=== PATIENT | male | born 1985 | race African-American/Black ===

== ENCOUNTER 2018-11-21 09:38 | Emergency (ER) | payer OTHER ==
[~2018-11-21] VITALS: Ht 188 cm; Wt 83.9 kg
[~2018-11-21 09:38] MED LIST: FLEXERIL PO; KETOCONAZOLE60 GM TP; NOHOMEMEDICATIONS; NORCO 5-325 TA1 EACH PO; PREDNISONE50 MG PO; VICODIN 5-5001 EACH PO
[2018-11-21 10:15] LABS: ABSOLUTE NEUTROPHILS 1.8 thou/uL (1.4-8.2); EOSINOPHILS 0.9 % (0.0-3.0); HEMATOCRIT 44.1 % (42.0-52.0); HEMOGLOBIN 14.8 gm/dL (14.0-18.0); LYMPHOCYTES 40.8 % (24.0-44.0); MCH 28.1 pg (26.0-34.0); MCHC 33.5 g/dL (28.0-37.0); MONOCYTES 11.7 % (1.0-8.0); PLATELET COUNT 169 thou/uL (150-400); POLYS 45.6 % (36.0-66.0); RBC 5.25 mil/uL (4.50-6.00); RDW 13.9 % (10.5-14.5); WBC 3.9 thou/uL (4.0-11.0)
[2018-11-21 10:29] LABS: ANION GAP 14 mmol/L (7-16); BUN 18 mg/dL (7-18); CALCIUM 9.5 mg/dL (8.5-10.1); CHLORIDE 102 mmol/L (98-107); CO2 26 mmol/L (21-32); CREATININE 0.8 mg/dL (0.7-1.3); GLUCOSE 132 mg/dL (74-106); POTASSIUM 4.1 mmol/L (3.5-5.1); SODIUM 142 mmol/L (136-145)
[2018-11-21 10:38] LABS: ALBUMIN 4.5 g/dL (3.4-5.0); SGOT 36 U/L (15-37); SGPT 55 U/L (30-65); TOTAL BILIRUBIN 0.4 mg/dL (<0.1-1.0); TOTAL PROTEIN 7.4 g/dL (6.4-8.2); TROPONIN-I <0.06 ng/mL (<0.06)
[2018-11-21 11:21] LABS: AMP/METHAMP Negative (Negative); BARBITURATES Negative (Negative); BENZODIAZEPINES Negative (Negative); COCAINE Negative (Negative); METHADONE Negative (Negative); OPIATES Negative (Negative); PCP POSITIVE (Negative)
[2018-11-21] MEDS ORDERED: MOBIC7.5 MG PO (11:50)
[2018-11-21 12:22] VITALS: BP 124/71
--- NOTE | 2018-11-21 12:54 | EKG ---
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: [facility] : 1985 Requested By: [place] Reyna Order Number: [id number] MD: Reynaldo Jack Measurements Intervals [place] Rate: 98 P: 79 [place]: 141 QRS: 60 QRSD: 91 T: 23 QT: 333 QTc: 426 Interpretive Statements Sinus rhythm Normal tracing No previous ECG available for comparison Electronically Signed On 11-21-2018 12:54:07 INFORMATICS NURSE SPECIALIST by Reynaldo Jack [email or web address] ��������������������������������������������� <ELECTRONICALLY SIGNED> ���������������������������������������� By: Reynaldo Jack MD, [facility] ��������������������������������������������� 11/21/18 1254 0943 0943 Reynaldo Jack MD, FACC /EPI
== END 2018-11-21 12:23 | disposition home or self-care (01) ==
LOC: ER 09:38
PROVIDERS: Physician Assistant
DX: R07.89 Other chest pain (principal); I10 Essential (primary) hypertension

== ENCOUNTER 2018-12-15 02:26 | Emergency (ER) | payer OTHER ==
[~2018-12-15] VITALS: Ht 188 cm; Wt 90.7 kg
[~2018-12-15 02:26] MED LIST changes: +MOBIC7.5 MG PO
[2018-12-15 05:07] VITALS: BP 124/63
== END 2018-12-15 05:09 | disposition home or self-care (01) ==
LOC: ER 02:26
DX: S01.01XA Laceration without foreign body of scalp, initial encounter (principal); Y04.0XXA Assault by unarmed brawl or fight, initial encounter; Y93.89 Activity, other specified; Y92.89 Other specified places as the place of occurrence of the external cause; Y99.8 Other external cause status

== ENCOUNTER 2018-12-28 22:33 | Emergency (ER) | payer OTHER ==
[~2018-12-28] VITALS: Ht 188 cm; Wt 81.7 kg
[2018-12-28 22:35] VITALS: BP 155/104
== END 2018-12-28 23:07 | disposition home or self-care (01) ==
LOC: ER 22:33
DX: S01.01XD Laceration without foreign body of scalp, subsequent encounter (principal); G89.29 Other chronic pain; X58.XXXD Exposure to other specified factors, subsequent encounter

== ENCOUNTER 2019-01-22 23:19 | Emergency (ER) | payer OTHER ==
[~2019-01-22] VITALS: Ht 188 cm; Wt 81.7 kg
[2019-01-23 00:41] VITALS: BP 106/59
== END 2019-01-23 00:42 | disposition home or self-care (01) ==
LOC: ER 23:19
DX: S61.411A Laceration without foreign body of right hand, initial encounter (principal); M54.9 Dorsalgia, unspecified; G89.29 Other chronic pain; W26.0XXA Contact with knife, initial encounter; Y93.89 Activity, other specified; Y92.89 Other specified places as the place of occurrence of the external cause; Y99.8 Other external cause status

== ENCOUNTER 2019-04-04 00:31 | Emergency (ER) | payer OTHER ==
[~2019-04-04] VITALS: Ht 188 cm; Wt 86.2 kg
[2019-04-04] MEDS ORDERED: KEFLEX500 M1 PO (05:13)
[2019-04-04 06:17] VITALS: BP 137/82
== END 2019-04-04 06:17 | disposition home or self-care (01) ==
LOC: ER 00:31
DX: S01.511A Laceration without foreign body of lip, initial encounter (principal); S01.21XA Laceration without foreign body of nose, initial encounter; M54.9 Dorsalgia, unspecified; G89.29 Other chronic pain; Y04.0XXA Assault by unarmed brawl or fight, initial encounter; Y93.89 Activity, other specified; Y92.89 Other specified places as the place of occurrence of the external cause; Y99.8 Other external cause status

== ENCOUNTER 2019-04-04 17:10 | Emergency (ER) | payer OTHER ==
[~2019-04-04 17:10] MED LIST changes: +KEFLEX500 M1 PO
[2019-04-04 17:11] VITALS: BP 156/93
== END 2019-04-04 17:55 | disposition home or self-care (01) ==
LOC: ER 17:10
DX: Z53.21 Procedure and treatment not carried out due to patient leaving prior to being seen by health care provider (principal)

== ENCOUNTER 2019-04-04 20:51 | Emergency (ER) | payer OTHER ==
[~2019-04-04] VITALS: Ht 188 cm; Wt 81.7 kg
[2019-04-04 20:55] VITALS: BP 133/87
== END 2019-04-04 21:49 | disposition home or self-care (01) ==
LOC: ER 20:51
DX: Z48.01 Encounter for change or removal of surgical wound dressing (principal); G89.29 Other chronic pain; M54.9 Dorsalgia, unspecified

== ENCOUNTER 2019-07-28 18:25 | Emergency (ER) | payer OTHER ==
[~2019-07-28] VITALS: Ht 188 cm; Wt 79.4 kg
[2019-07-28] MEDS ORDERED: AUGMENTIN 875-1 EACH PO (20:36)
[2019-07-28 21:00] VITALS: BP 132/87
== END 2019-07-28 21:03 | disposition home or self-care (01) ==
LOC: ER 18:25
DX: S61.411A Laceration without foreign body of right hand, initial encounter (principal); S69.91XA Unspecified injury of right wrist, hand and finger(s), initial encounter; G89.29 Other chronic pain; M54.9 Dorsalgia, unspecified; F10.129 Alcohol abuse with intoxication, unspecified; W18.39XA Other fall on same level, initial encounter; Y92.89 Other specified places as the place of occurrence of the external cause; Y93.89 Activity, other specified; Y99.8 Other external cause status

== ENCOUNTER 2019-11-22 14:40 | Emergency (ER) | payer OTHER ==
[~2019-11-22] VITALS: Ht 188 cm; Wt 82.1 kg
[~2019-11-22 14:40] MED LIST changes: +AUGMENTIN 875-1 EACH PO
[2019-11-22 17:05] VITALS: BP 131/95
== END 2019-11-22 17:05 | disposition home or self-care (01) ==
LOC: ER 14:40
DX: F10.129 Alcohol abuse with intoxication, unspecified (principal); F17.290 Nicotine dependence, other tobacco product, uncomplicated; Z79.899 Other long term (current) drug therapy

== ENCOUNTER 2019-11-22 21:53 | Emergency (ER) | payer OTHER ==
[~2019-11-22] VITALS: Ht 188 cm; Wt 83.9 kg
[2019-11-22 21:55] VITALS: BP 165/84
[2019-11-22 22:48] LABS: HEMATOCRIT 47.7 % (42.0-52.0); HEMOGLOBIN 15.7 gm/dL (14.0-18.0); MCH 28.3 pg (26.0-34.0); MCHC 32.9 g/dL (28.0-37.0); MCV 86.2 fL (80.0-100.0); RBC 5.54 mil/uL (4.50-6.00); RDW 13.3 % (10.5-14.5); WBC 10.4 thou/uL (4.0-11.0)
[2019-11-22 22:52] LABS: URINE BILIRUBIN NEGATIVE (Negative); URINE BLOOD NEGATIVE (Negative); URINE CLARITY CLEAR; URINE COLOR YELLOW; URINE GLUCOSE-RANDOM* NEGATIVE (Negative); URINE KETONES NEGATIVE (Negative); URINE LEUKOCYTES-REFLEX NEGATIVE (Negative); URINE NITRITE-REFLEX NEGATIVE (Negative); URINE PROTEIN (DIPSTICK) NEGATIVE (Negative); URINE UROBILINOGEN 0.2 E.U./dl (0.2-1.0)
[2019-11-22 22:54] LABS: ANION GAP 12 mmol/L (7-16); BUN 15 mg/dL (7-18); CALCIUM 9.3 mg/dL (8.5-10.1); CHLORIDE 102 mmol/L (98-107); CO2 28 mmol/L (21-32); CREATININE 0.8 mg/dL (0.7-1.3); GLUCOSE 75 mg/dL (74-106); POTASSIUM 3.5 mmol/L (3.5-5.1); SALICYLATE < 2.8 mg/dL (2.8-20.0); SODIUM 142 mmol/L (136-145)
[2019-11-22 22:59] LABS: AMP/METHAMP Negative (Negative); BARBITURATES Negative (Negative); BENZODIAZEPINES Negative (Negative); COCAINE Negative (Negative); METHADONE Negative (Negative); OPIATES Negative (Negative); PCP Negative (Negative)
[2019-11-26 18:06] LABS: TRICYCLIC (TCA) CONFIRMATION Positive ng/mL (Cutoff=100)
== END 2019-11-23 06:43 | disposition home or self-care (01) ==
LOC: ER 21:53
PROVIDERS: Emergency Medicine
DX: R45.851 Suicidal ideations (principal); F10.129 Alcohol abuse with intoxication, unspecified; G89.29 Other chronic pain; M54.9 Dorsalgia, unspecified; Z79.899 Other long term (current) drug therapy

== ENCOUNTER 2020-01-09 20:19 | Emergency (ER) | payer OTHER ==
[2020-01-09 20:31] VITALS: BP 00/00
== END 2020-01-09 20:37 | disposition home or self-care (01) ==
LOC: ER 20:19
DX: H92.22 Otorrhagia, left ear (principal); F10.10 Alcohol abuse, uncomplicated; R47.81 Slurred speech; Y90.9 Presence of alcohol in blood, level not specified

== ENCOUNTER 2020-01-18 15:53 | Emergency (ER) | payer OTHER ==
[~2020-01-18] VITALS: Ht 188 cm; Wt 81.7 kg
[2020-01-18 15:56] VITALS: BP 118/71
== END 2020-01-18 16:57 | disposition home or self-care (01) ==
LOC: ER 15:53
DX: R51 Headache (principal); F19.10 Other psychoactive substance abuse, uncomplicated; G89.29 Other chronic pain; M54.2 Cervicalgia; M54.5 Low back pain; F12.90 Cannabis use, unspecified, uncomplicated

== ENCOUNTER 2020-05-16 14:38 | Emergency (ER) | payer OTHER ==
[~2020-05-16] VITALS: Ht 185.4 cm; Wt 83.9 kg
[2020-05-16 17:21] VITALS: BP 146/106
== END 2020-05-16 17:21 | disposition left against medical advice (07) ==
LOC: ER 14:38
DX: S02.831A Fracture of medial orbital wall, right side, initial encounter for closed fracture (principal); G89.29 Other chronic pain; W22.8XXA Striking against or struck by other objects, initial encounter; Y93.89 Activity, other specified; Y92.89 Other specified places as the place of occurrence of the external cause; Y99.9 Unspecified external cause status

== ENCOUNTER → 2020-07-21 | Emergency (ER) | payer OTHER | LOC: ER 16:02 | DX: M79.646 Pain in unspecified finger(s) (principal); Z53.21 Procedure and treatment not carried out due to patient leaving prior to being seen by health care provider ==

== ENCOUNTER 2020-07-22 12:17 | Inpatient (IN) | payer OTHER ==
[~2020-07-22] VITALS: Ht 190.5 cm; Wt 85.7 kg
[2020-07-22 12:18] VITALS: BP 136/86
[2020-07-22 13:50] LABS: ABSOLUTE NEUTROPHILS 2.1 thou/uL (1.4-8.2); BASOPHILS 2.4 % (0.0-2.0); EOSINOPHILS 0.8 % (0.0-3.0); HEMATOCRIT 43.1 % (42.0-52.0); HEMOGLOBIN 14.6 gm/dL (14.0-18.0); LYMPHOCYTES 30.9 % (24.0-44.0); MCHC 33.8 g/dL (28.0-37.0); MCV 88.7 fL (80.0-100.0); MONOCYTES 9.4 % (1.0-8.0); POLYS 56.5 % (36.0-66.0); RBC 4.86 mil/uL (4.50-6.00); RDW 13.9 % (10.5-14.5); WBC 3.7 thou/uL (4.0-11.0)
[2020-07-22 13:58] LABS: CALCIUM 8.4 mg/dL (8.5-10.1); CREATININE 0.8 mg/dL (0.7-1.3); POTASSIUM 3.6 mmol/L (3.5-5.1)
[2020-07-22 14:47] LABS: PLATELET COUNT 89 thou/uL (150-400)
[2020-07-22 15:20] LABS: APTT 26.6 Seconds (24.5-32.8); PROTIME 9.5 Seconds (9.3-11.4)
[2020-07-22 15:24] VITALS: BP 140/91
[2020-07-22 15:58] VITALS: BP 140/88
[2020-07-22 16:00] VITALS: BP 146/94
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
== END 2020-07-22 17:06 | disposition left against medical advice (07) | DRG 603 ==
LOC: ER 12:17 → EROBS 14:34 → 2N 16:07
PROVIDERS: Emergency Medicine; ADMIT Internal Medicine; ATTEND Internal Medicine
DX: L03.011 Cellulitis of right finger (principal); G89.29 Other chronic pain; M54.9 Dorsalgia, unspecified; F10.10 Alcohol abuse, uncomplicated; Y90.9 Presence of alcohol in blood, level not specified; F19.10 Other psychoactive substance abuse, uncomplicated; F17.200 Nicotine dependence, unspecified, uncomplicated; M65.841 Other synovitis and tenosynovitis, right hand; Z20.828 Contact with and (suspected) exposure to other viral communicable diseases
CPT/HCPCS: 10194

== ENCOUNTER 2020-09-07 23:02 | Emergency (ER) | payer OTHER ==
[~2020-09-07] VITALS: Ht 188 cm; Wt 84.4 kg
[2020-09-08 02:14] VITALS: BP 132/80
== END 2020-09-08 02:00 | disposition home or self-care (01) ==
LOC: ER 23:02
DX: S01.81XA Laceration without foreign body of other part of head, initial encounter (principal); W25.XXXA Contact with sharp glass, initial encounter; Y93.89 Activity, other specified; Y92.89 Other specified places as the place of occurrence of the external cause; Y99.8 Other external cause status

== ENCOUNTER 2020-10-02 19:55 | Emergency (ER) | payer OTHER ==
[~2020-10-02] VITALS: Ht 188 cm; Wt 83.9 kg
[2020-10-02 19:56] VITALS: BP 174/107
== END 2020-10-02 21:59 | disposition home or self-care (01) ==
LOC: ER 19:55
DX: S01.01XA Laceration without foreign body of scalp, initial encounter (principal); G89.29 Other chronic pain; M54.9 Dorsalgia, unspecified; W50.1XXA Accidental kick by another person, initial encounter; Y93.89 Activity, other specified; Y92.89 Other specified places as the place of occurrence of the external cause; Y99.8 Other external cause status

== ENCOUNTER 2020-10-11 12:19 | Emergency (ER) | payer OTHER ==
[~2020-10-11] VITALS: Ht 190.5 cm; Wt 83.9 kg
[2020-10-11 13:12] VITALS: BP 130/87
== END 2020-10-11 13:13 | disposition home or self-care (01) ==
LOC: ER 12:19
DX: S01.01XD Laceration without foreign body of scalp, subsequent encounter (principal); G89.29 Other chronic pain; X58.XXXD Exposure to other specified factors, subsequent encounter

== ENCOUNTER 2020-10-19 14:54 | Emergency (ER) | payer OTHER ==
[~2020-10-19] VITALS: Ht 190.5 cm; Wt 83.9 kg
[2020-10-19 14:57] VITALS: BP 159/99
[2020-10-19 16:04] LABS: ABSOLUTE NEUTROPHILS 2.1 thou/uL (1.4-8.2); BASOPHILS 2.9 % (0.0-2.0); HEMATOCRIT 42.4 % (42.0-52.0); HEMOGLOBIN 14.3 gm/dL (14.0-18.0); LYMPHOCYTES 29.8 % (24.0-44.0); MCH 30.5 pg (26.0-34.0); MCHC 33.6 g/dL (28.0-37.0); MCV 90.7 fL (80.0-100.0); MONOCYTES 11.3 % (1.0-8.0); PLATELET COUNT 132 thou/uL (150-400); RBC 4.68 mil/uL (4.50-6.00); RDW 13.2 % (10.5-14.5); WBC 3.8 thou/uL (4.0-11.0)
== END 2020-10-19 17:03 | disposition home or self-care (01) ==
LOC: ER 14:54
PROVIDERS: Nurse Practitioner
DX: R23.8 Other skin changes (principal)

== ENCOUNTER 2020-10-21 19:17 | Emergency (ER) | payer OTHER ==
[~2020-10-21] VITALS: Ht 190.5 cm; Wt 83.9 kg
[2020-10-21] MEDS ORDERED: KEFLEX500 M1 PO (20:17)
[2020-10-21 20:34] VITALS: BP 142/96
== END 2020-10-21 20:35 | disposition home or self-care (01) ==
LOC: ER 19:17
DX: S60.426A Blister (nonthermal) of right little finger, initial encounter (principal); F12.90 Cannabis use, unspecified, uncomplicated; G89.29 Other chronic pain; X58.XXXA Exposure to other specified factors, initial encounter; Y93.89 Activity, other specified; Y92.89 Other specified places as the place of occurrence of the external cause; Y99.9 Unspecified external cause status

== ENCOUNTER 2020-11-20 15:52 | Emergency (ER) | payer OTHER ==
[~2020-11-20] VITALS: Ht 190.5 cm; Wt 83.9 kg
[2020-11-20] MEDS ORDERED: NEURONTIN 300M300 M2 PO (16:19)
== END 2020-11-20 16:59 | disposition home or self-care (01) ==
LOC: ER 15:52
DX: G62.9 Polyneuropathy, unspecified (principal); G89.29 Other chronic pain; M54.9 Dorsalgia, unspecified; F17.210 Nicotine dependence, cigarettes, uncomplicated; Z79.899 Other long term (current) drug therapy

== ENCOUNTER 2020-12-28 05:48 | Emergency (ER) | payer OTHER ==
[~2020-12-28] VITALS: Ht 157.5 cm; Wt 85.5 kg
[~2020-12-28 05:48] MED LIST changes: +NEURONTIN 300M300 M2 PO
--- NOTE | 2020-12-28 07:13 | EKG ---
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: hany contreras : 1985 Requested By: Gianni Neely Order Number: [id number] MD: Michael Pablo Measurements Intervals [place] Rate: 101 P: 40 [place]: 148 QRS: 23 QRSD: 95 T: 0 QT: 362 QTc: 470 Interpretive Statements Sinus tachycardia Probable left atrial enlargement Borderline prolonged QT interval Compared to ECG 11/21/2018 09:43:18 Sinus rhythm no longer present Electronically Signed On 12-28-2020 7:13:27 CDT by Michael Pablo [email or web address] <ELECTRONICALLY SIGNED> By: Michael Pablo MD, [facility] 12/28/20 0713 0652 1 Michael Pablo MD, FACC /EPI
[2020-12-28 07:14] LABS: ABSOLUTE NEUTROPHILS 3.4 thou/uL (1.4-8.2); BASOPHILS 1.2 % (0.0-2.0); EOSINOPHILS 0.4 % (0.0-3.0); HEMATOCRIT 38.5 % (42.0-52.0); LYMPHOCYTES 17.7 % (24.0-44.0); MCHC 33.7 g/dL (28.0-37.0); MONOCYTES 12.9 % (1.0-8.0); PLATELET COUNT 159 thou/uL (150-400); POLYS 67.8 % (36.0-66.0); RBC 4.32 mil/uL (4.50-6.00); WBC 5.1 thou/uL (4.0-11.0)
[2020-12-28 07:23] LABS: CALCIUM 8.9 mg/dL (8.5-10.1); CREATININE 0.9 mg/dL (0.7-1.3); POTASSIUM 3.3 mmol/L (3.5-5.1)
[2020-12-28 07:29] LABS: ALBUMIN 3.9 g/dL (3.4-5.0); TOTAL BILIRUBIN 1.2 mg/dL (0.2-1.0); TOTAL PROTEIN 7.1 g/dL (6.4-8.2)
[2020-12-28 09:34] LABS: URINE BILIRUBIN NEGATIVE (Negative); URINE BLOOD NEGATIVE (Negative); URINE CLARITY CLEAR; URINE COLOR YELLOW; URINE GLUCOSE-RANDOM* NEGATIVE (Negative); URINE KETONES 2+ (Negative); URINE LEUKOCYTES-REFLEX NEGATIVE (Negative); URINE NITRITE-REFLEX NEGATIVE (Negative); URINE PROTEIN (DIPSTICK) 2+ (Negative); URINE SPECIFIC GRAVITY >= 1.030 (1.005-1.035)
[2020-12-28 09:50] LABS: BACTERIA-REFLEX 1-9 Few /HPF (None Seen); HYALINE CASTS 0-3 Few /LPF (None Seen); SQUAMOUS None Seen /LPF (0-3); URINE RBC 0-2 Rare /HPF (0-2); URINE WBC-REFLEX 0-5 Rare /HPF (0-5)
[2020-12-28 09:51] LABS: CRYSTALS None Seen /LPF (None Seen)
[2020-12-28] MEDS ORDERED: AUGMENTIN 875-1 EACH PO (09:58)
[2020-12-28 10:08] VITALS: BP 151/99
[2020-12-29] MEDS ORDERED: CHLORDIAZEPOXID25 M1 PO (13:52)
== END 2020-12-28 10:09 | disposition home or self-care (01) ==
LOC: ER 05:48
PROVIDERS: Emergency Medicine
DX: S01.81XA Laceration without foreign body of other part of head, initial encounter (principal); S11.91XA Laceration without foreign body of unspecified part of neck, initial encounter; F17.210 Nicotine dependence, cigarettes, uncomplicated; W18.30XA Fall on same level, unspecified, initial encounter; W54.0XXA Bitten by dog, initial encounter; Y93.89 Activity, other specified; Y92.89 Other specified places as the place of occurrence of the external cause; Y99.8 Other external cause status

== ENCOUNTER 2020-12-29 13:22 | Emergency (ER) | payer OTHER ==
[~2020-12-29] VITALS: Ht 188 cm; Wt 83.9 kg
[2020-12-29] MEDS ORDERED: CHLORDIAZEPOXID25 M1 PO (13:52)
[2020-12-29 15:13] VITALS: BP 155/86
== END 2020-12-29 15:13 | disposition home or self-care (01) ==
LOC: ER 13:22
DX: S01.81XD Laceration without foreign body of other part of head, subsequent encounter (principal); F17.210 Nicotine dependence, cigarettes, uncomplicated; Z79.899 Other long term (current) drug therapy; W54.0XXD Bitten by dog, subsequent encounter

== ENCOUNTER 2020-12-31 09:14 | Emergency (ER) | payer OTHER ==
[~2020-12-31] VITALS: Ht 188 cm; Wt 83.9 kg
[2020-12-31 09:14] VITALS: BP 130/87
[~2020-12-31 09:14] MED LIST changes: +CHLORDIAZEPOXID25 M1 PO
== END 2020-12-31 10:07 | disposition left against medical advice (07) ==
LOC: ER 09:14
DX: S91.352A Open bite, left foot, initial encounter (principal); S41.152A Open bite of left upper arm, initial encounter; F17.210 Nicotine dependence, cigarettes, uncomplicated; Z79.899 Other long term (current) drug therapy; W54.0XXA Bitten by dog, initial encounter; Y93.89 Activity, other specified; Y92.89 Other specified places as the place of occurrence of the external cause; Y99.8 Other external cause status

== ENCOUNTER 2021-01-01 23:44 | Inpatient (IN) | payer MEDICAID ==
[~2021-01-01] VITALS: Ht 188 cm; Wt 83.9 kg
--- NOTE | ~2021-01-01 | HC ---
[facility] [place] [address] CONSULTATION Name: ANUJ ROBISON Tracie Room #: 358-P ADM IN M.R.#: [id number] Admission: 01/02/21 Attend Phys: Sergey Mckeon MD Discharge: Date of : 87 Report #: [id number] THIS REPORT FOR: cc: NO FAMILY PHYSICIAN or PCP NO FAMILY PHYSICIAN or PCP Moncho Irwin MD ~ DATE OF SERVICE: 01/02/2021 CHIEF COMPLAINT: Dog bites to the left arm and leg and neck. HISTORY OF PRESENT ILLNESS: This is a 35-year-old male patient with a history of polysubstance abuse, who has had multiple emergency visits for dog bites. He is complaining of some swelling and drainage from his chin and some difficulty swallowing, which prompted him being admitted. He had previously been treated with oral Augmentin. He has had multiple revisits to the ER. He cannot specifically recall the details of the dog bite. It was not his dog, although apparently, the dog that bit him has not been quarantined and apparently, rabies immunoprophylaxis has been initiated. PAST MEDICAL HISTORY: Significant for severe alcohol abuse, he drinks approximately a half gallon of vodka daily. He also smokes marijuana and cigarettes. Past medical history is also positive for chronic back pain, herniated disks and peripheral neuropathy. SOCIAL HISTORY: Positive for smoking cigarettes one-half pack per day, smokes marijuana and drinks one-half gallon of vodka daily. FAMILY HISTORY: Noncontributory. REVIEW OF SYSTEMS: CONSTITUTIONAL: The patient denies fever, chills or weight loss. NEUROLOGICAL: The patient denies focal weakness. Does complain of some numbness to his feet. ENT: The patient denies earache, nasal drainage or sore throat, but does complain of some foul smelling drainage from the bite wound on his left neck. PULMONARY: The patient denies cough or shortness of breath. GASTROINTESTINAL: The patient denies nausea, vomiting, diarrhea or abdominal pain. No fatigue. ORTHOPEDIC: The patient does have some dog bites to his left arm and left leg. Denies other pain. PHYSICAL EXAMINATION: VITAL SIGNS: At this time include temperature 36.8, pulse 94, respiratory rate 16, blood pressure 132/67. GENERAL: This is a well-developed male patient who appears to be somnolent, but [facility] [address] [place] [address] CONSULTATION Name: ROBISON,ANUJ Hodges Room #: 358-P [facility] IN M.R.#: [id number] Admission: 01/02/21 Attend Phys: Sergey Mckeon MD Discharge: Date of : 87 Report #: [id number] in no distress. HEENT: Head is normocephalic. Nose and throat are clear. NECK: Demonstrates what appears to be some traumatic wound to the anterior neck and submandibular region. It is mildly tender, but there is no fluctuance and there is no odor and no obvious drainage. LUNGS: Clear. HEART: Regular rhythm. ABDOMEN: Slightly distended, soft, nontender. EXTREMITIES: Demonstrate multiple wounds to the upper arm and forearm on the left side as well as to the left lower leg. These may in fact be dog bites, although the one on the upper arm has some resemblance in terms of its morphology to what would be considered a human bite, although he denies this. NEUROLOGIC: The patient is alert, level of orientation is a little bit difficult to assess. He moves symmetrically. LABORATORY STUDIES: Sodium 144, potassium 3.0, chloride 105, CO2 of 28, BUN 13, creatinine 0.7, glucose 143. White blood cell count of 6.3 with hemoglobin 11.4, hematocrit of 33.0. Serum alcohol on admission was 277. CLINICAL IMPRESSION: 1. Multiple traumatic wounds to the left anterior neck, left upper arm, left forearm and left leg, possibly secondary to dog bite per his history. 2. Tobacco abuse. 3. Severe alcohol abuse. 4. Other substance abuse/marijuana use. RECOMMENDATIONS: At this point in time, the patient has been seen by Infectious Disease. We will recommend antibiotics per their recommendations. We will recommend topical gentamicin ointment, Xeroform, 4 x 4's, Kerlix to be applied to the wounds daily other than the neck, which I think could be left open to air at this point in time. Substance abuse counseling has been offered and declined, the patient. I appreciate being asked to see him in consultation. By: 1157 1250 Moncho Irwin MD /nt
[2021-01-01 23:57] VITALS: BP 138/91
[2021-01-02] VITALS (7 sets, daily range): BP systolic 120–156; BP diastolic 67–107
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
[2021-01-02 01:29] LABS: ABSOLUTE NEUTROPHILS 3.4 thou/uL (1.4-8.2); BASOPHILS 0.3 % (0.0-2.0); EOSINOPHILS 0.8 % (0.0-3.0); HEMOGLOBIN 11.4 gm/dL (14.0-18.0); LYMPHOCYTES 32.7 % (24.0-44.0); MCH 30.5 pg (26.0-34.0); MCHC 34.5 g/dL (28.0-37.0); MCV 88.4 fL (80.0-100.0); MONOCYTES 12.2 % (1.0-8.0); PLATELET COUNT 190 thou/uL (150-400); RBC 3.73 mil/uL (4.50-6.00); RDW 12.5 % (10.5-14.5); WBC 6.3 thou/uL (4.0-11.0)
[2021-01-02 01:59] LABS: CALCIUM 8.5 mg/dL (8.5-10.1); CREATININE 0.7 mg/dL (0.7-1.3)
[2021-01-02 02:05] LABS: ALBUMIN 3.6 g/dL (3.4-5.0); TOTAL BILIRUBIN 0.3 mg/dL (0.2-1.0); TOTAL PROTEIN 7.1 g/dL (6.4-8.2)
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
[2021-01-02 09:50] LABS: MAGNESIUM 1.7 mg/dL (1.8-2.4); PHOSPHORUS 3.1 mg/dL (2.5-4.9)
[2021-01-02 10:18] LABS: FOLIC ACID 7.9 ng/mL (8.6-58.9)
--- NOTE | 2021-01-02 12:46 | NUR ---
PT TRANSFERRED FROM 4W TO 3W, ROOM 358, PT ALERT AND ORIENTED X4, DENIES ANY NAUSEA AND VOMITTING. CIWA ASSESSMENT COMPLETED EVERY 4 HOURS. PT UP AD JOEL TO BATHROOM. ASSESSMENT AND ADMISION COMPLETED. PT GIRLFRIEND IN ROOM VISITING. WILL CONTINUE TO MONITOR
[2021-01-02 23:06] LABS: HAV IgM AB (ANTI-HAV IgM) Negative (Negative); HEPATITIS B SURFACE AG Negative (Negative); HEPATITIS C VIRUS AB <0.1 (0.0-0.9); HIV ANTIBODY Non Reactive (Non Reactive)
[2021-01-03 04:30] VITALS: BP 149/103
[2021-01-03 07:28] VITALS: BP 148/92
--- NOTE | 2021-01-03 10:45 | NUR ---
CARE TAKEN OVER THIS AM, PT ALERT AND ORIENTED X4. PT DENIES ANY PAIN, NAUSEA AND VOMITTING. PT UP AD JOEL. GIRLFIREND IN ROOM VISITING. WOUND CARE DRESSING COMPLETED. WILL CONTINUE TO MONITOR
[2021-01-03 11:37] VITALS: BP 154/92
--- NOTE | 2021-01-03 11:56 | HC ---
[facility] [place] [address] CONSULTATION Name: ANUJ ROBISON Room #: 358-P ADM IN M.R.#: [id number] Admission: 01/02/21 Attend Phys: Sergey Mckeon MD Discharge: Date of : 87 Report #: [id number] THIS REPORT FOR: cc: NO FAMILY PHYSICIAN or PCP NO FAMILY PHYSICIAN or PCP Konstantin Downey MD ~ DATE OF SERVICE: 01/02/2021 INFECTIOUS DISEASE CONSULTATION ATTENDING PHYSICIAN: Dr. Mckeon. REASON FOR EVALUATION: Dog bite multiple sites, complicated by skin and soft tissue infection. HISTORY OF PRESENT ILLNESS: Chart reviewed, patient examined. This is a 35-year-old gentleman with history of chronic back pain. Does have history of seizures, felt to be alcohol withdrawal related who sustained injury as a result of a dog bite. He was seen on 12/31/2020, given treatment with Augmentin, which apparently he did not take. He noted he previously had a dog bite to his neck as well. Review of the recent ER visits, there have been many of involved injuries, sustained one scalp laceration. It is notable that alcohol level was elevated at 277. CT of the soft tissue of the neck showed no evident abscess. There was some stranding suggestive of inflammation, empirically dosed with Unasyn as well as vancomycin. He is generally lucid. ALLERGIES: None known. MEDICINES: Currently include vitamin, famotidine, vancomycin, ondansetron, flumazenil, folic acid, thiamine, multivitamin. PAST MEDICAL HISTORY: Chronic back pain. SOCIAL HISTORY: Ethanol abuse or illicit drug use. FAMILY HISTORY: Noncontributory. REVIEW OF SYSTEMS: As above. PHYSICAL EXAMINATION: GENERAL: He is alert, cooperative, moderate distress. He is generally lucid, reasonably well nourished. VITAL SIGNS: Temperature 99.4, pulse 94, respirations 14, blood pressure 136/89. SKIN: Warm, dry, no rashes. [facility] [address] [place] [address] CONSULTATION Name: ANUJ ROBISON Room #: 358-P [facility].#: [id number] Admission: 01/02/21 Attend Phys: Sergey Mckeon MD Discharge: Date of : 87 Report #: [id number] NECK: Does have some fullness in his neck. He is palpably tender. I do not appreciate any fluctuance. He notes a knot in the submandibular site. HEENT: Normocephalic. Extraocular muscles intact. Oropharynx with poor dentition. LUNGS: Diminished, otherwise clear breath sounds. HEART: Regular. Borderline tachycardia. I do not appreciate any murmur. ABDOMEN: Soft, nontender, there are no peritoneal signs. There is some superficial laceration, left upper extremity and left lower extremity with mild to moderate degree of inflammation. There is no evidence of fluctuance. There is no evidence of exposure or communication with deep seated structures. GENITOURINARY AND RECTAL: Deferred. LABORATORY DATA: Electrolytes: Sodium 144, potassium 3.0, chloride 105, bicarbonate 28, anion gap of 11, BUN and creatinine 13 and 0.7. AST of 123, ALT 86. Albumin of 3.6, total protein of 7.1. CBC: White count 6.3, H and H 11.4 and 33.0, platelets of 190. ASSESSMENT AND PLAN: Dog bite injury complicated by skin and soft tissue infection at multiple sites. We will continue the vancomycin and add Unasyn, do additional diagnostic testing. We will see how he does clinically over the course of next 24-48 hours, would be concerned about alcohol withdrawal as well. He has had a history of leaving. Continue wound care as prescribed. Discussed with Dr. Irwin. <ELECTRONICALLY SIGNED> By: Konstantin Downey MD 01/03/21 1156 1130 1303 Konstantin Downey MD /nt
--- NOTE | 2021-01-03 15:25 | NUR ---
INITIAL ASSESSMENT: SW reviewed chart and spoke with nursing and attending physician. Pt was admitted from home after several dog bites. Pt is on IV abx. Wound care and ID following. Pt was seen in the ER on 12/31 and then discharged and did not fill his new scripts. Pt does not have health insurance. [facility] met with pt and filed a Medicaid application. SW met with pt and s/o at bedside. Introduced role of SW. Pt is alert/orientated x 4. Pt states that he lives at [address] [place] [address]. Pt does not have a PCP. Pt is agreeable with receiving info for primary care clinics for follow up. SW notified that pt is homeless. SW returned to pt's room to discuss discharge disposition. Pt requests SW return at a later time. [facility] Resource Guide and prescription discount card left on pt's chart. SW is following to assist as needed with discharge planning.
[2021-01-03 15:59] VITALS: BP 147/101
[2021-01-03 19:15] VITALS: BP 142/99
[2021-01-04 04:15] VITALS: BP 131/79
--- NOTE | 2021-01-04 07:41 | NUR ---
PT MAKING PROGRESS TOWARD GOALS. WOUND REPORTEDLY IMPROVING, DRESSINGS DRY AND INTACT. DENIES ANY PAIN AT THOSE SITES.
[2021-01-04 07:55] VITALS: BP 150/95
[2021-01-04] MEDS ORDERED: GENTAMICIN SULF15 GM TOP (11:21)
[2021-01-04] MEDS ORDERED: AUGMENTIN 875-1 EACH PO (11:21)
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
--- NOTE | 2021-01-04 15:04 | NUR ---
spoke with patient and girlfriend in bed with patient. Discussed discharge to jail. Patient denies he reports he would rather be outside than a jail. Alerted plan to vouch for antibiotic at mt. Patient within an hour of converstation left AMA. Dr Mckeon wanted RN to call patient to have antibiotic. Gave script and face sheet to pharmacy in medical mall. when returned patient returned to floor. Instructed medication, antibiotic to be vouched and located in outpatient pharmacy. No further needs
[2021-01-04 20:06] LABS: SYPHILIS AB Non Reactive (Non Reactive)
== END 2021-01-04 12:16 | disposition left against medical advice (07) | DRG 603 ==
LOC: ER 23:44 → 3W 01-02 05:12 → EROBS 01-02 05:12 → 4W 01-02 05:39 → 3W 01-02 06:32
PROVIDERS: Emergency Medicine; Nurse Practitioner; Specialist; ADMIT Hospitalist; ATTEND Hospitalist
DX: L03.221 Cellulitis of neck (principal); G89.29 Other chronic pain; M54.9 Dorsalgia, unspecified; S81.852A Open bite, left lower leg, initial encounter; S01.85XA Open bite of other part of head, initial encounter; G62.9 Polyneuropathy, unspecified; F17.210 Nicotine dependence, cigarettes, uncomplicated; S11.90XA Unspecified open wound of unspecified part of neck, initial encounter; S81.802A Unspecified open wound, left lower leg, initial encounter; S51.802A Unspecified open wound of left forearm, initial encounter; F12.90 Cannabis use, unspecified, uncomplicated; F10.129 Alcohol abuse with intoxication, unspecified; F19.10 Other psychoactive substance abuse, uncomplicated; E87.6 Hypokalemia; E83.42 Hypomagnesemia; Z53.29 Procedure and treatment not carried out because of patient's decision for other reasons; W54.0XXA Bitten by dog, initial encounter; Y93.89 Activity, other specified; Y92.89 Other specified places as the place of occurrence of the external cause; Y99.8 Other external cause status
CPT/HCPCS: 10879

== ENCOUNTER 2021-03-05 22:29 | Emergency (ER) | payer OTHER ==
[~2021-03-05] VITALS: Ht 188 cm; Wt 81.7 kg
[~2021-03-05 22:29] MED LIST changes: +GENTAMICIN SULF15 GM TOP
[2021-03-06 00:12] LABS: BASOPHILS 1.3 % (0.0-2.0); EOSINOPHILS 0.2 % (0.0-3.0); HEMATOCRIT 41.7 % (42.0-52.0); HEMOGLOBIN 14.1 gm/dL (14.0-18.0); LYMPHOCYTES 33.1 % (24.0-44.0); MCH 29.4 pg (26.0-34.0); MCHC 33.9 g/dL (28.0-37.0); MCV 86.8 fL (80.0-100.0); MONOCYTES 12.2 % (1.0-8.0); PLATELET COUNT 93 thou/uL (150-400); POLYS 53.2 % (36.0-66.0); RDW 12.6 % (10.5-14.5); WBC 3.8 thou/uL (4.0-11.0)
[2021-03-06 00:17] LABS: CALCIUM 8.2 mg/dL (8.5-10.1); CREATININE 0.8 mg/dL (0.7-1.3); POTASSIUM 3.1 mmol/L (3.5-5.1)
[2021-03-06 00:23] LABS: ALBUMIN 3.8 g/dL (3.4-5.0); MAGNESIUM 1.6 mg/dL (1.8-2.4); TOTAL BILIRUBIN 0.6 mg/dL (0.2-1.0); TOTAL PROTEIN 6.9 g/dL (6.4-8.2)
[2021-03-06 03:11] VITALS: BP 122/76
== END 2021-03-06 03:11 | disposition home or self-care (01) ==
LOC: ER 22:29
PROVIDERS: Emergency Medicine
DX: G47.62 Sleep related leg cramps (principal); E87.6 Hypokalemia; E83.42 Hypomagnesemia; F10.10 Alcohol abuse, uncomplicated; F17.210 Nicotine dependence, cigarettes, uncomplicated; G89.29 Other chronic pain; M54.9 Dorsalgia, unspecified; G62.9 Polyneuropathy, unspecified

== ENCOUNTER 2021-03-27 12:33 | Emergency (ER) | payer OTHER ==
[~2021-03-27] VITALS: Ht 188 cm; Wt 83.9 kg
[2021-03-27 13:26] VITALS: BP 114/68
[2021-03-27 13:43] LABS: CALCIUM 7.9 mg/dL (8.5-10.1); CREATININE 0.8 mg/dL (0.7-1.3); POTASSIUM 3.2 mmol/L (3.5-5.1)
[2021-03-27 13:45] LABS: ABSOLUTE NEUTROPHILS 2.2 thou/uL (1.4-8.2); BASOPHILS 1.9 % (0.0-2.0); EOSINOPHILS 0.7 % (0.0-3.0); HEMATOCRIT 41.6 % (42.0-52.0); HEMOGLOBIN 14.2 gm/dL (14.0-18.0); LYMPHOCYTES 34.7 % (24.0-44.0); MCH 29.7 pg (26.0-34.0); MCV 87.3 fL (80.0-100.0); PLATELET COUNT 122 thou/uL (150-400); POLYS 55.7 % (36.0-66.0); RBC 4.77 mil/uL (4.50-6.00); RDW 13.6 % (10.5-14.5); WBC 3.9 thou/uL (4.0-11.0)
[2021-03-27 13:49] LABS: ALBUMIN 3.4 g/dL (3.4-5.0); TOTAL BILIRUBIN 0.3 mg/dL (0.2-1.0); TOTAL PROTEIN 6.6 g/dL (6.4-8.2)
== END 2021-03-27 15:40 ==
LOC: ER 12:33
PROVIDERS: Physician Assistant
DX: S02.2XXA Fracture of nasal bones, initial encounter for closed fracture (principal); S22.32XA Fracture of one rib, left side, initial encounter for closed fracture; F17.210 Nicotine dependence, cigarettes, uncomplicated; V03.09XA Pedestrian with other conveyance injured in collision with car, pick-up truck or van in nontraffic accident, initial encounter; Y93.89 Activity, other specified; Y92.89 Other specified places as the place of occurrence of the external cause; Y99.8 Other external cause status

== ENCOUNTER 2021-04-08 04:43 | Inpatient (IN) | payer OTHER ==
[~2021-04-08] VITALS: Ht 190.5 cm; Wt 81.6 kg
[2021-04-08] VITALS (11 sets, daily range): BP systolic 121–154; BP diastolic 78–101
[2021-04-08 05:15] LABS: ABSOLUTE NEUTROPHILS 6.9 thou/uL (1.4-8.2); BASOPHILS 0.6 % (0.0-2.0); EOSINOPHILS 0.1 % (0.0-3.0); HEMATOCRIT 44.3 % (42.0-52.0); HEMOGLOBIN 15.1 gm/dL (14.0-18.0); LYMPHOCYTES 6.6 % (24.0-44.0); MCH 29.7 pg (26.0-34.0); MCHC 34.1 g/dL (28.0-37.0); MCV 87.2 fL (80.0-100.0); MONOCYTES 3.3 % (1.0-8.0); PLATELET COUNT 100 thou/uL (150-400); POLYS 89.4 % (36.0-66.0); RBC 5.08 mil/uL (4.50-6.00); RDW 14.3 % (10.5-14.5); WBC 7.7 thou/uL (4.0-11.0)
[2021-04-08 05:34] LABS: ALBUMIN 3.7 g/dL (3.4-5.0); ANION GAP 15 mmol/L (7-16); BUN 11 mg/dL (7-18); CALCIUM 8.4 mg/dL (8.5-10.1); CHLORIDE 103 mmol/L (98-107); CO2 27 mmol/L (21-32); CREATININE 0.8 mg/dL (0.7-1.3); GLUCOSE 86 mg/dL (74-106); SGOT 184 U/L (15-37); SGPT 84 U/L (30-65); SODIUM 145 mmol/L (136-145); TOTAL BILIRUBIN 0.9 mg/dL (0.2-1.0); TOTAL PROTEIN 7.1 g/dL (6.4-8.2); TROPONIN-I <0.06 ng/mL (<0.06)
[2021-04-08 05:35] LABS: POTASSIUM 2.8 mmol/L (3.5-5.1)
[2021-04-08 10:28] LABS: CALCIUM 7.4 mg/dL (8.5-10.1); CREATININE 0.7 mg/dL (0.7-1.3); PHOSPHORUS 2.6 mg/dL (2.5-4.9); POTASSIUM 3.1 mmol/L (3.5-5.1)
[2021-04-08 10:31] LABS: TROPONIN-I <0.06 ng/mL (<0.06)
[2021-04-08 10:58] LABS: MAGNESIUM 0.8 mg/dL (1.8-2.4)
--- NOTE | 2021-04-08 10:58 | EKG ---
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
[2021-04-08 15:21] LABS: CALCIUM 7.4 mg/dL (8.5-10.1); MAGNESIUM 1.3 mg/dL (1.8-2.4); POTASSIUM 3.3 mmol/L (3.5-5.1)
--- NOTE | 2021-04-08 19:06 | NUR ---
PT CARE ASSUMED AT 0830. ASSESSMENTS CHARTED. MEDICATIONS CHARTED. RAC IV. SINUS TACHYCARDIA. O2 2LPM NC. COVID NEGATIVE. URINAL. DIET: REGULAR. STAND-BY ASSIST. ETOH ABUSE.
[2021-04-09 03:18] LABS: ABSOLUTE NEUTROPHILS 7.4 thou/uL (1.4-8.2); BASOPHILS 0.6 % (0.0-2.0); HEMATOCRIT 37.3 % (42.0-52.0); LYMPHOCYTES 8.9 % (24.0-44.0); MCH 30.2 pg (26.0-34.0); MCHC 34.4 g/dL (28.0-37.0); MCV 87.8 fL (80.0-100.0); MONOCYTES 4.3 % (1.0-8.0); PLATELET COUNT 69 thou/uL (150-400); POLYS 86.2 % (36.0-66.0); RBC 4.25 mil/uL (4.50-6.00); RDW 14.1 % (10.5-14.5); WBC 8.6 thou/uL (4.0-11.0)
[2021-04-09 03:26] LABS: HEMOGLOBIN 12.9 gm/dL (14.0-18.0)
[2021-04-09 03:29] LABS: ALBUMIN 2.7 g/dL (3.4-5.0); CALCIUM 7.7 mg/dL (8.5-10.1); CREATININE 0.6 mg/dL (0.7-1.3); MAGNESIUM 1.6 mg/dL (1.8-2.4); PHOSPHORUS 1.9 mg/dL (2.5-4.9); TOTAL BILIRUBIN 1.1 mg/dL (0.2-1.0); TOTAL PROTEIN 5.9 g/dL (6.4-8.2)
[2021-04-09 03:38] LABS: POTASSIUM 2.7 mmol/L (3.5-5.1)
[2021-04-09 05:30] VITALS: BP 147/95
[2021-04-09 07:40] VITALS: BP 142/98
--- NOTE | 2021-04-09 07:52 | NUR ---
ASSESSMENTS CHARTED, MEDS CHARTED GIVEN. PATIENT RESTING IN BED DURING SHIFT. PATIENT CRITICAL POTASSIUM THIS MORNING, REPLACED POTASSIUM AND MAGNESIUM THIS MORNING. PATIENT ON SEIZURE PRECAUTIONS. ON CWAL PROTOCOL. PATIENT STARTED ON VANCO, BLOOD CULTURES CAME BACK POSITIVE. FALL PRECAUTIONS IN PLACE DURING SHIFT.
--- NOTE | 2021-04-09 11:05 | NUR ---
Cm tried to visit with him, unable to r/t he was in restroom. Discussed during los, pt. is wanting to discharge today. Will cont following as needed for dc needs.
[2021-04-09] MEDS ORDERED: AUGMENTIN 875-1 EACH PO (11:31)
[2021-04-09] MEDS ORDERED: VITAMIN B-1100 M2 PO (11:32)
[2021-04-09 11:38] VITALS: BP 142/98
--- NOTE | 2021-04-09 11:46 | NUR ---
ASSUMED CARE SHIFT CHANGE. ASSESSMENT CHARTED.VSS. DENIES PAIN. O2 SATS WNL 2L O2. PT STATED TO THIS RN "I'M DISCHARGING THIS IS BORING" PHYSICIAN NOTIFIED. DC ORDERS RECEIVED. DC DISCUSSED WITH PT COMMUNICATES UNDERSTANDING. IV REMOVED TELE REMOVED. PT LEFT UNIT WITH ALL BELONGINGS.
[2021-04-10 00:06] LABS: HIV ANTIBODY Non Reactive (Non Reactive)
== END 2021-04-09 11:58 | disposition home or self-care (01) | DRG 871 ==
LOC: ER 04:43 → EROBS 05:51 → 2N 08:26
PROVIDERS: Emergency Medicine; Internal Medicine; ADMIT Hospitalist; ATTEND Hospitalist
DX: A41.9 Sepsis, unspecified organism (principal); J18.9 Pneumonia, unspecified organism; G62.9 Polyneuropathy, unspecified; E87.6 Hypokalemia; G40.909 Epilepsy, unspecified, not intractable, without status epilepticus; Z20.822 Contact with and (suspected) exposure to COVID-19; Z87.891 Personal history of nicotine dependence
CPT/HCPCS: 10081

== ENCOUNTER 2021-04-21 02:13 | Inpatient (IN) | payer OTHER ==
[~2021-04-21] VITALS: Ht 170.2 cm; Wt 68.0 kg
[~2021-04-21 02:13] MED LIST changes: +VITAMIN B-1100 M2 PO
[2021-04-21 02:24] VITALS: BP 159/95
[2021-04-21 03:07] LABS: ABSOLUTE NEUTROPHILS 1.4 thou/uL (1.4-8.2); BASOPHILS 2.2 % (0.0-2.0); EOSINOPHILS 0.7 % (0.0-3.0); HEMATOCRIT 40.4 % (42.0-52.0); HEMOGLOBIN 13.8 gm/dL (14.0-18.0); LYMPHOCYTES 47.5 % (24.0-44.0); MCH 29.6 pg (26.0-34.0); MCHC 34.3 g/dL (28.0-37.0); MCV 86.5 fL (80.0-100.0); MONOCYTES 11.4 % (1.0-8.0); PLATELET COUNT 193 thou/uL (150-400); POLYS 38.2 % (36.0-66.0); RBC 4.67 mil/uL (4.50-6.00); RDW 14.9 % (10.5-14.5); WBC 3.7 thou/uL (4.0-11.0)
[2021-04-21 03:14] LABS: CALCIUM 8.2 mg/dL (8.5-10.1); CREATININE 0.7 mg/dL (0.7-1.3); POTASSIUM 3.4 mmol/L (3.5-5.1)
[2021-04-21 03:20] LABS: ALBUMIN 3.5 g/dL (3.4-5.0); TOTAL BILIRUBIN 0.4 mg/dL (0.2-1.0); TOTAL PROTEIN 7.1 g/dL (6.4-8.2)
[2021-04-21 04:09] LABS: URINE BILIRUBIN NEGATIVE (Negative); URINE BLOOD NEGATIVE (Negative); URINE CLARITY CLEAR; URINE COLOR YELLOW; URINE GLUCOSE-RANDOM* NEGATIVE (Negative); URINE KETONES NEGATIVE (Negative); URINE LEUKOCYTES-REFLEX NEGATIVE (Negative); URINE NITRITE-REFLEX NEGATIVE (Negative); URINE PROTEIN (DIPSTICK) NEGATIVE (Negative); URINE SPECIFIC GRAVITY 1.015 (1.005-1.035); URINE UROBILINOGEN 0.2 E.U./dl (0.2-1.0)
[2021-04-21 06:50] VITALS: BP 116/74
[2021-04-21 10:11] VITALS: BP 129/89
[2021-04-21] MEDS ORDERED: NORCO5 PO (13:04)
[2021-04-21 13:19] VITALS: BP 135/83
== END 2021-04-21 13:19 | disposition home or self-care (01) | DRG 185 ==
LOC: ER 02:13 → EROBS 06:16
PROVIDERS: Emergency Medicine; ADMIT Surgery; ATTEND Surgery
DX: S22.43XA Multiple fractures of ribs, bilateral, initial encounter for closed fracture (principal); G89.29 Other chronic pain; M54.9 Dorsalgia, unspecified; G62.9 Polyneuropathy, unspecified; F10.129 Alcohol abuse with intoxication, unspecified; Y09 Assault by unspecified means; F17.210 Nicotine dependence, cigarettes, uncomplicated; X58.XXXA Exposure to other specified factors, initial encounter; Y93.89 Activity, other specified; Y92.89 Other specified places as the place of occurrence of the external cause; Y99.8 Other external cause status

== ENCOUNTER 2021-04-27 04:17 | Emergency (ER) | payer OTHER ==
[~2021-04-27] VITALS: Ht 188 cm; Wt 88.5 kg
[~2021-04-27 04:17] MED LIST changes: +NORCO5 PO
[2021-04-27 04:59] VITALS: BP 139/100
== END 2021-04-27 04:58 | disposition home or self-care (01) ==
LOC: ER 04:17
DX: R06.00 Dyspnea, unspecified (principal); F17.210 Nicotine dependence, cigarettes, uncomplicated

== ENCOUNTER 2021-05-12 01:47 | Emergency (ER) | payer OTHER ==
[2021-05-12 04:30] VITALS: BP 00/00
== END 2021-05-12 06:00 | disposition home or self-care (01) ==
LOC: ER 01:47
DX: L98.8 Other specified disorders of the skin and subcutaneous tissue (principal); F10.129 Alcohol abuse with intoxication, unspecified; M79.641 Pain in right hand; R07.89 Other chest pain; R07.81 Pleurodynia; F17.210 Nicotine dependence, cigarettes, uncomplicated; Z79.891 Long term (current) use of opiate analgesic; Z79.899 Other long term (current) drug therapy

== ENCOUNTER 2021-06-03 23:38 | Emergency (ER) | payer OTHER ==
[~2021-06-03] VITALS: Ht 190.5 cm; Wt 83.9 kg
[2021-06-04 01:21] VITALS: BP 147/101
[2021-06-04] MEDS ORDERED: NEURONTIN 300M300 M2 PO (01:24)
== END 2021-06-04 01:31 | disposition home or self-care (01) ==
LOC: ER 23:38
DX: G89.29 Other chronic pain (principal); M54.5 Low back pain; G62.89 Other specified polyneuropathies; F17.210 Nicotine dependence, cigarettes, uncomplicated; F12.90 Cannabis use, unspecified, uncomplicated; Z79.891 Long term (current) use of opiate analgesic; Z79.899 Other long term (current) drug therapy

== ENCOUNTER 2021-06-10 02:18 | Emergency (ER) | payer OTHER ==
[~2021-06-10] VITALS: Ht 188 cm; Wt 83.9 kg
[2021-06-10] MEDS ORDERED: NOHOMEMEDICATIONS (02:24)
[2021-06-10] MEDS ORDERED: NAPROSYN500 M1 PO (02:25)
[2021-06-10] MEDS ORDERED: [UNRECOGNIZED DRUG - OTHER] PO (02:25)
[2021-06-10] MEDS ORDERED: BICILLIN MU PO (02:25)
[2021-06-10] MEDS ORDERED: VITAMIN B-1100 M2 PO (02:25)
[2021-06-10 02:37] VITALS: BP 122/75
== END 2021-06-10 02:37 | disposition home or self-care (01) ==
LOC: ER 02:18
DX: K08.89 Other specified disorders of teeth and supporting structures (principal); F17.210 Nicotine dependence, cigarettes, uncomplicated; Z79.899 Other long term (current) drug therapy

== ENCOUNTER 2021-07-04 02:39 | Emergency (ER) | payer OTHER ==
[~2021-07-04] VITALS: Ht 188 cm; Wt 88.5 kg
[~2021-07-04 02:39] MED LIST changes: +BICILLIN MU PO; +NAPROSYN500 M1 PO; +[UNRECOGNIZED DRUG - OTHER] PO
[2021-07-04] MEDS ORDERED: LIPITOR40 MG PO (03:00)
[2021-07-04] MEDS ORDERED: VITAMIN D310 MC4 PO (03:01)
[2021-07-04] MEDS ORDERED: BACITRACIN3.5 GM TOP (03:01)
[2021-07-04] MEDS ORDERED: ROWEEPRA500 MG PO (03:02)
[2021-07-04] MEDS ORDERED: ROXICODONE5 MG PO (03:03)
[2021-07-04] MEDS ORDERED: PROTONIX40 M2 PO (03:03)
[2021-07-04] MEDS ORDERED: PROPRANOLOL 20M20 M1 PO (03:05)
[2021-07-04 03:10] VITALS: BP 124/108
== END 2021-07-04 03:25 | disposition home or self-care (01) ==
LOC: ER 02:39
DX: L29.8 Other pruritus (principal); G62.9 Polyneuropathy, unspecified; F12.90 Cannabis use, unspecified, uncomplicated; F17.210 Nicotine dependence, cigarettes, uncomplicated; Z72.89 Other problems related to lifestyle; Z79.899 Other long term (current) drug therapy

== ENCOUNTER 2021-08-26 18:13 | Emergency (ER) | payer OTHER ==
[~2021-08-26] VITALS: Ht 188 cm; Wt 85.7 kg
[~2021-08-26 18:13] MED LIST changes: +BACITRACIN3.5 GM TOP; +LIPITOR40 MG PO; +PROPRANOLOL 20M20 M1 PO; +PROTONIX40 M2 PO; +ROWEEPRA500 MG PO; +ROXICODONE5 MG PO; +VITAMIN D310 MC4 PO
[2021-08-26 18:18] VITALS: BP 168/114
== END 2021-08-26 18:51 | disposition left against medical advice (07) ==
LOC: ER 18:13
DX: S31.010A Laceration without foreign body of lower back and pelvis without penetration into retroperitoneum, initial encounter (principal); G62.9 Polyneuropathy, unspecified; F12.90 Cannabis use, unspecified, uncomplicated; Z53.21 Procedure and treatment not carried out due to patient leaving prior to being seen by health care provider; Z98.890 Other specified postprocedural states; W26.0XXA Contact with knife, initial encounter; Y93.89 Activity, other specified; Y92.89 Other specified places as the place of occurrence of the external cause; Y99.8 Other external cause status

== ENCOUNTER → 2021-08-28 | Emergency (ER) | payer OTHER ==
[~2021-08-28] VITALS: Ht 188 cm; Wt 85.7 kg
[2021-08-28 08:44] VITALS: BP 139/91
== END ==
LOC: ER 08:19
DX: S21.112A Laceration without foreign body of left front wall of thorax without penetration into thoracic cavity, initial encounter (principal); G62.9 Polyneuropathy, unspecified; F12.90 Cannabis use, unspecified, uncomplicated; F17.210 Nicotine dependence, cigarettes, uncomplicated; Z98.890 Other specified postprocedural states; W26.0XXA Contact with knife, initial encounter; Y93.89 Activity, other specified; Y92.89 Other specified places as the place of occurrence of the external cause; Y99.8 Other external cause status

== ENCOUNTER 2021-11-04 18:28 | Emergency (ER) | payer OTHER ==
[~2021-11-04] VITALS: Ht 188 cm; Wt 85.7 kg
[2021-11-04 19:25] LABS: ABSOLUTE NEUTROPHILS 5.7 thou/uL (1.4-8.2); BASOPHILS 0.6 % (0.0-2.0); HEMATOCRIT 42.6 % (42.0-52.0); HEMOGLOBIN 14.2 gm/dL (14.0-18.0); LYMPHOCYTES 11.6 % (24.0-44.0); MCH 28.9 pg (26.0-34.0); MCHC 33.3 g/dL (28.0-37.0); MCV 86.8 fL (80.0-100.0); MONOCYTES 10.9 % (1.0-8.0); PLATELET COUNT 143 thou/uL (150-400); POLYS 76.9 % (36.0-66.0); RDW 12.8 % (10.5-14.5); WBC 7.4 thou/uL (4.0-11.0)
[2021-11-04 19:41] LABS: CALCIUM 8.1 mg/dL (8.5-10.1); POTASSIUM 3.7 mmol/L (3.5-5.1)
[2021-11-04 19:50] LABS: ALBUMIN 3.3 g/dL (3.4-5.0); TOTAL BILIRUBIN 0.2 mg/dL (0.2-1.0)
[2021-11-04] MEDS ORDERED: ZPAK PO (19:57)
[2021-11-04 20:15] VITALS: BP 131/81
--- NOTE | 2021-11-05 08:31 | EKG ---
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: MARLENE : 1985 Requested By: Betty Perez Order Number: [id number] MD: Reynaldo Jack Measurements Intervals [place] Rate: 96 P: 62 [place]: 144 QRS: 59 QRSD: 92 T: 32 QT: 341 QTc: 431 Interpretive Statements Sinus rhythm No significant abnormality Compared to ECG 04/08/2021 04:48:29 Sinus tachycardia no longer present Electronically Signed On 11-05-2021 8:31:38 SWITCHBOARD RECEPTIONIST by Reynaldo Jack [email or web address] <ELECTRONICALLY SIGNED> By: Reynaldo Jack MD, [facility] 11/05/21 0831 1846 1846 Reynaldo Jack MD, FACC /EPI
== END 2021-11-04 20:19 | disposition home or self-care (01) ==
LOC: ER 18:28
PROVIDERS: Nurse Practitioner
DX: U07.1 COVID-19 (principal); F17.210 Nicotine dependence, cigarettes, uncomplicated